=== PATIENT | female | born 1965 | race Caucasian/White ===

== ENCOUNTER 2018-02-08 00:23 | Emergency (ER) | payer OTHER ==
[2018-02-08 00:25] VITALS: BP 100/61; PULSE 70; RESP 18; TEMP 97.5; O2SAT 98
--- NOTE | 2018-02-08 00:40 | PD ---
HPI Chief Complaint: Skin Problem Time Seen by Provider: 00:31 Travel History International Travel<30 days: No Contact w/Intl Traveler<30days: No Traveled to known affect area: No History of Present Illness HPI 52-year-old female presents for evaluation after a needlestick. The patient is a nurse at [employer]. She reports that she accidentally poked her left index finger with a needle after administering heparin to the patient. She has bled for the source patient which she was sent to the lab. She reports that there was initially bleeding which resolved. She has a minor bruise to left index finger. Symptoms are minor, aggravated by being poked with a needle with no relieving factors. Symptom onset today. Last tetanus vaccination unknown. No other complaints. PFSH Past Medical History Medical History: Denies Significant Hx Diminished Hearing: No Immunizations Current: Yes ?: Not Past Surgical History Surgical History: No Previous Surgery Social History Alcohol Use: Yes Tobacco Use: No Substance Use: No Allergies-Medications (Allergen,Severity, Reaction): Coded Allergies: No Known Allergies (Unverified , 02/08/18) Review of Systems General / Constitutional: No: Fever, Chills Musculoskeletal: Positive: Pain Skin: Positive Other (Positive for puncture wound.) Neurologic: No: Paresthesia Physical Exam Narrative GENERAL: Well-nourished female no acute distress SKIN: Warm and dry. Minor ecchymosis fingerpad left index finger. CARDIOVASCULAR: Regular rate and rhythm. No murmur appreciated. RESPIRATORY: No accessory muscle use. Clear to auscultation. Breath sounds equal bilaterally. Data Data Last Documented VS Vital Signs Date Time Temp Pulse Resp B/P (MAP) Pulse Ox O2 Delivery O2 Flow Rate FiO2 02/08/18 00:25 97.5 70 18 100/61 (74) 98 Orders Orders Tetanus/Diphtheria Tox Adult (Tetanus/Di (02/08/18 00:45) MDM Medical Decision Making Medical Screen Exam Complete: Yes Emergency Medical Condition: Yes Medical Record Reviewed: Yes Differential Diagnosis Needlestick, puncture wound, contusion Narrative Course Postexposure protocol followed. Source patient testing and sent to lab. Tetanus status updated. The patient will follow up with employee med Diagnosis Primary Impression: Needlestick injury accident Referrals: Employ Med Additional Instructions: Follow-up employ med. Return for any emergent medical conditions. Med/Other Pt SpecificInfo: No Change to Meds Disposition: 01 DISCHARGE HOME Condition: Stable Rashaun Murillo Feb 08, 2018 00:40
[2018-02-08] MEDS ORDERED: TETANUS/DIPHTHERIA TOXOID ADULT 0.5 ML VIAL IM ONE (00:45)
== END 2018-02-08 02:13 | disposition home or self-care (01) ==
LOC: NEPD 00:23
DX: Z77.21 Contact with and (suspected) exposure to potentially hazardous body fluids (principal); W46.0XXA Contact with hypodermic needle, initial encounter; Y99.0 Civilian activity done for income or pay; Z23 Encounter for immunization
CPT/HCPCS: 90471; 90714